=== PATIENT | female | born 1995 | race Hispanic/Latino ===

== ENCOUNTER 2021-04-03 12:47 | Emergency (ER) | payer MEDICAID, OTHER ==
[~2021-04-03] VITALS: Ht 157.5 cm; Wt 74.4 kg
[2021-04-03] MEDS ORDERED: TETANUS/DIPHTHERIA TOXOID [ADULT] 0.5 ML VIAL IM ONE (13:30)
[2021-04-03] MEDS ORDERED: AMOX/CLAV 875/125MG TAB PO ONE (13:30)
[2021-04-03] MEDS ORDERED: IBUPROFEN 600 MG TABLET PO SCH (13:30)
[2021-04-03] MEDS ORDERED: IBUP-2070 PO (13:32)
[2021-04-03] MEDS ORDERED: AMOX-429 PO (13:32)
[2021-04-03] MEDS ORDERED: MUPI22OINT TP (13:32)
[2021-04-03 13:58] VITALS: BP 131/78
== END 2021-04-03 14:10 | disposition home or self-care (01) ==
LOC: EDH 12:47
DX: S81.832A Puncture wound without foreign body, left lower leg, initial encounter (principal); Z79.1 Long term (current) use of non-steroidal anti-inflammatories (NSAID); W54.0XXA Bitten by dog, initial encounter; Y93.89 Activity, other specified; Y92.89 Other specified places as the place of occurrence of the external cause; Y99.8 Other external cause status
CPT/HCPCS: 90471; 90714